=== PATIENT | female | born 1995 | race Two or more races ===

== ENCOUNTER 2021-10-03 21:45 | Emergency (ER) | payer OTHER ==
[2021-10-03 22:07] VITALS: BP 130/74; PULSE 73; TEMP 98.9; BMI 29.1
== END 2021-10-03 22:33 | disposition home or self-care (01) ==
LOC: FER 21:45
DX: M79.642 Pain in left hand (principal)
CPT/HCPCS: 73130-TC-LT-FY; 99283-25

== ENCOUNTER 2024-02-17 17:38 | Emergency (ER) | payer OTHER ==
[2024-02-17 17:53] VITALS: BP 127/81; PULSE 85; RESP 18; TEMP 98; BMI 39.1
== END 2024-02-17 19:20 | disposition home or self-care (01) ==
LOC: JERFT 17:38 → JER 17:38 → JERFT 19:20
DX: M25.571 Pain in right ankle and joints of right foot (principal); M79.642 Pain in left hand; S93.401A Sprain of unspecified ligament of right ankle, initial encounter; S60.222A Contusion of left hand, initial encounter; W18.39XA Other fall on same level, initial encounter; X50.1XXA Overexertion from prolonged static or awkward postures, initial encounter; Y99.0 Civilian activity done for income or pay
CPT/HCPCS: 73110-TC-LT-FY; 73130-TC-LT-FY; 73610-TC-RT-FY; 73630-TC-RT-FY; 99284-25

== ENCOUNTER 2024-11-08 06:32 | Inpatient (IN) | payer OTHER ==
[2024-11-08] MEDS ORDERED: ACETAMINOPHEN INJECTION 100 ML ONE (07:45)
[2024-11-08] MEDS ORDERED: ONDANSETRON 4 MG/2 ML VIAL ONE (07:47)
[2024-11-08] MEDS: ONDANSETRON 4 MG/2 ML VIAL IVPUSH ONE (07:52)
[2024-11-08] MEDS: ACETAMINOPHEN 1000 MG/100 ML BAG IVPB ONE (07:52)
[2024-11-08 08:08] LABS: BASO % 0.3 % (0-2.0); EOS % 0.3 % (0-4.5); HEMATOCRIT 35.6 % (32.4-45.2); HEMOGLOBIN 12.1 GM/dL (10.7-15.3); LYMPH % 7.9 % (8-40); MCHC 33.9 g/dl (32.0-36.0); MEAN CELL VOLUME 88.5 fl (80-96); MEAN PLT VOLUME 8.2 fl (7.5-11.1); MONO % 6.1 % (3.8-10.2); NEUT % 85.4 % (42.8-82.8); PLATELET COUNT 349 10^3/uL (134-434); RBC 4.02 M/mm3 (3.60-5.2); RDW 14.3 % (11.6-15.6); WHITE BLOOD COUNT 16.8 K/mm3 (4.0-10.0)
[2024-11-08 08:17] LABS: POTASSIUM 3.7 mmol/L (3.5-5.1)
[2024-11-08 08:19] LABS: ALBUMIN 3.7 g/dl (3.4-5.0); CALCIUM 9.2 mg/dL (8.5-10.1)
[2024-11-08 08:20] LABS: BLOOD UREA NITROGEN 11.8 mg/dL (7-18)
[2024-11-08 08:23] LABS: CREATININE 0.9 mg/dL (0.55-1.3)
[2024-11-08 08:24] LABS: BILIRUBIN,TOTAL 0.9 mg/dL (0.2-1); TOT PROT 7.2 g/dl (6.4-8.2)
[2024-11-08 08:53] LABS: EPI CELLS >36 /uL (0-25.1); HYALINE CASTS 3 /uL (0-3.1); URINE APPEARANCE CLOUDY; URINE BILIRUBIN 1+ (NEGATIVE); URINE COLOR DK YELLOW; URINE GLUCOSE (UA) NEGATIVE (NEGATIVE); URINE KETONE TRACE (NEGATIVE); URINE LEUK ESTERASE NEGATIVE (NEGATIVE); URINE NITRITE POSITIVE (NEGATIVE); URINE PROTEIN 1+ (NEGATIVE); URINE WBC 45 /uL (0-25.8)
[2024-11-08 09:03] LABS: URINE BACTERIA 474.3 /uL (0-1359); URINE RBC 46.5 /uL (0-23.9)
[2024-11-08 09:04] LABS: HCG,QUALITATIVE URINE Negative
[2024-11-08] MEDS ORDERED: CEFTRIAXONE 1 G/50 ML PREMIX 50 ML IVPB ONE (12:08)
[2024-11-08] MEDS: CEFTRIAXONE 1 GM in DEXTROSE 5%-WATER - 50 ML IVPB ONE (12:14)
[2024-11-08] MEDS: SODIUM CHLORIDE 1,000 ML IV ONE (12:28)
[2024-11-08] MEDS ORDERED: morphine SULFATE 4 MG/ML VIAL ONE ×2 (17:51→23:23)
[2024-11-08] MEDS: morphine CARPU-JECT 4 MG/1 ML DISP.SYRIN IVPUSH ONE (18:31)
[2024-11-08] MEDS ORDERED: PIPERACILLIN/TAZOB 4.5 GM 4.5 GM/100 ML BAG IVPB ONE (18:47)
[2024-11-08] MEDS: PIPERACILLIN/TAZOB 4.5 GM 4.5 GM in DEXTROSE 5%-WATER 100 ML IVPB ONE (18:50)
[2024-11-08] MEDS: morphine SULFATE 4 MG/ML VIAL IVPUSH ONE (23:35)
[2024-11-09 01:43] VITALS: BMI 24.0
[2024-11-09] MEDS: PIPERACILLIN/TAZOB 3.375 GM 50 ML IVPB SCH (03:50)
[2024-11-09] MEDS: LEVOTHYROXINE NA 50 MCG TABLET (FP) PO SCH (06:27)
[2024-11-09] MEDS: INSULIN ASPART SLIDING SCALE (NOVOLOG) 1 VIAL SQ SCH (06:27)
[2024-11-09 08:04] LABS: BASO % 0.2 % (0-2.0); EOS % 0.2 % (0-4.5); HEMATOCRIT 31.6 % (32.4-45.2); HEMOGLOBIN 10.7 GM/dL (10.7-15.3); LYMPH % 7.3 % (8-40); MCH 30.1 pg (25.7-33.7); MCHC 33.8 g/dl (32.0-36.0); MEAN PLT VOLUME 8.2 fl (7.5-11.1); MONO % 6.4 % (3.8-10.2); NEUT % 85.9 % (42.8-82.8); PLATELET COUNT 309 10^3/uL (134-434); RBC 3.55 M/mm3 (3.60-5.2); RDW 14.4 % (11.6-15.6); WHITE BLOOD COUNT 15.7 K/mm3 (4.0-10.0)
[2024-11-09 08:22] LABS: POTASSIUM 3.9 mmol/L (3.5-5.1)
[2024-11-09 08:25] LABS: CALCIUM 8.6 mg/dL (8.5-10.1)
[2024-11-09 08:26] LABS: BLOOD UREA NITROGEN 7.2 mg/dL (7-18); MAGNESIUM 1.9 mg/dL (1.8-2.4)
[2024-11-09 08:29] LABS: CREATININE 0.9 mg/dL (0.55-1.3); PHOSPHOROUS 3.1 mg/dL (2.5-4.9)
[2024-11-09 08:31] LABS: ALBUMIN 2.9 g/dl (3.4-5.0); TOT PROT 6.4 g/dl (6.4-8.2)
[2024-11-09] MEDS: ACETAMINOPHEN 1000 MG/100 ML BAG IVPB PRN (14:53)
[2024-11-09] MEDS: SODIUM CHLORIDE 1,000 ML IV SCH (18:00)
[2024-11-10] MEDS: DEXTROSE 5%-0.45% SALINE 1,000 ML IV SCH ×2 (08:55→16:58)
[2024-11-10 09:37] LABS: BASO % 0.3 % (0-2.0); EOS % 0.5 % (0-4.5); HEMATOCRIT 33.8 % (32.4-45.2); HEMOGLOBIN 10.9 GM/dL (10.7-15.3); LYMPH % 10.2 % (8-40); MCH 29.2 pg (25.7-33.7); MCHC 32.2 g/dl (32.0-36.0); MEAN CELL VOLUME 90.7 fl (80-96); MEAN PLT VOLUME 8.2 fl (7.5-11.1); MONO % 4.8 % (3.8-10.2); NEUT % 84.2 % (42.8-82.8); PLATELET COUNT 391 10^3/uL (134-434); RBC 3.73 M/mm3 (3.60-5.2); RDW 14.3 % (11.6-15.6); WHITE BLOOD COUNT 16.1 K/mm3 (4.0-10.0)
[2024-11-10 09:49] LABS: POTASSIUM 3.7 mmol/L (3.5-5.1)
[2024-11-10 09:59] LABS: BLOOD UREA NITROGEN 10.4 mg/dL (7-18); CALCIUM 9.3 mg/dL (8.5-10.1)
[2024-11-10 10:02] LABS: CREATININE 0.8 mg/dL (0.55-1.3)
[2024-11-10 10:03] LABS: BILIRUBIN,TOTAL 1.2 mg/dL (0.2-1)
[2024-11-11 07:03] VITALS: RESP 18
[2024-11-11 07:47] LABS: BASO % 0.3 % (0-2.0); EOS % 0.9 % (0-4.5); HEMATOCRIT 31.1 % (32.4-45.2); HEMOGLOBIN 10.4 GM/dL (10.7-15.3); LYMPH % 10.1 % (8-40); MCH 29.4 pg (25.7-33.7); MCHC 33.3 g/dl (32.0-36.0); MEAN CELL VOLUME 88.4 fl (80-96); MEAN PLT VOLUME 7.9 fl (7.5-11.1); MONO % 8.6 % (3.8-10.2); NEUT % 80.1 % (42.8-82.8); PLATELET COUNT 355 10^3/uL (134-434); RBC 3.52 M/mm3 (3.60-5.2); RDW 14.4 % (11.6-15.6); WHITE BLOOD COUNT 11.5 K/mm3 (4.0-10.0)
[2024-11-11 07:52] LABS: POTASSIUM 3.5 mmol/L (3.5-5.1)
[2024-11-11 08:02] LABS: CALCIUM 9.1 mg/dL (8.5-10.1)
[2024-11-11 08:03] LABS: ALBUMIN 2.6 g/dl (3.4-5.0); BLOOD UREA NITROGEN 5.8 mg/dL (7-18); MAGNESIUM 1.7 mg/dL (1.8-2.4)
[2024-11-11 08:06] LABS: BILIRUBIN,TOTAL 0.6 mg/dL (0.2-1); CREATININE 0.7 mg/dL (0.55-1.3); TOT PROT 6.3 g/dl (6.4-8.2)
[2024-11-11] MEDS: PIPERACILLIN/TAZOB 3.375 GM 3.375 GM in DEXTROSE 5%-WATER - 50 ML IVPB SCH ×2 (15:58→16:32)
[2024-11-11] MEDS: HEPARIN NA (PORCINE) 5,000 UNITS/ML 1ML VIAL SQ SCH (16:32)
[2024-11-11] MEDS: PIPERACILLIN/TAZOB 3.375 GM 50 ML IVPB SCH (17:47)
[2024-11-12] MEDS: ACETAMINOPHEN 1000 MG/100 ML BAG IVPB PRN (20:43)
[2024-11-13 07:09] VITALS: TEMP 98.2
[2024-11-13 10:16] VITALS: BP 114/76; PULSE 82
[2024-11-13 11:20] LABS: BASO % 0.6 % (0-2.0); EOS % 1.7 % (0-4.5); HEMATOCRIT 31.7 % (32.4-45.2); HEMOGLOBIN 10.5 GM/dL (10.7-15.3); LYMPH % 17.6 % (8-40); MCH 29.2 pg (25.7-33.7); MEAN CELL VOLUME 88.5 fl (80-96); MEAN PLT VOLUME 7.9 fl (7.5-11.1); MONO % 11.4 % (3.8-10.2); NEUT % 68.7 % (42.8-82.8); PLATELET COUNT 381 10^3/uL (134-434); RBC 3.58 M/mm3 (3.60-5.2); RDW 14.3 % (11.6-15.6); WHITE BLOOD COUNT 8.8 K/mm3 (4.0-10.0)
[2024-11-13 11:44] LABS: POTASSIUM 3.9 mmol/L (3.5-5.1)
[2024-11-13 11:47] LABS: BLOOD UREA NITROGEN 3.5 mg/dL (7-18); MAGNESIUM 1.9 mg/dL (1.8-2.4)
[2024-11-13 11:48] LABS: ALBUMIN 2.5 g/dl (3.4-5.0)
[2024-11-13 11:50] LABS: CREATININE 0.7 mg/dL (0.55-1.3)
[2024-11-13 11:52] LABS: BILIRUBIN,TOTAL 0.6 mg/dL (0.2-1); TOT PROT 6.6 g/dl (6.4-8.2)
== END 2024-11-13 18:02 | disposition home or self-care (01) | DRG 244 ==
LOC: JER 06:32 → JERBED 19:17 → J7W 11-09 01:30
PROVIDERS: ADMIT Internal Medicine; ATTEND Nurse Practitioner Family
DX: K57.20 Diverticulitis of large intestine with perforation and abscess without bleeding (principal); K65.1 Peritoneal abscess; E03.9 Hypothyroidism, unspecified; E16.2 Hypoglycemia, unspecified
CPT/HCPCS: 36415; 74176-TC; 76830-TC; 80053; 81003; 82962; 83036; 83690; 83735; 84100; 84703; 85025; 87040; 87491; 87591; 87661; 93005; 93010; 99285-25; J0131; J1644

== ENCOUNTER 2025-05-24 10:36 | Day surgery (SDC) | payer OTHER ==
[2025-05-20 13:09] VITALS: BMI 36.9
[2025-05-24] MEDS ORDERED: LIDOCAINE VISCOUS 2% ORAL/TOP 15 ML UNIT-DOSE CUP ONE (11:51)
[2025-05-24] MEDS ORDERED: LIDOCAINE HCL/PF 2% SDV 5ML VIAL ONE (11:51)
[2025-05-24 12:38] VITALS: TEMP 98
[2025-05-24 12:41] VITALS: BP 124/72; PULSE 78; RESP 19
== END 2025-05-24 12:30 | disposition home or self-care (01) ==
LOC: FASU-ENDO 10:36
PROVIDERS: ATTEND Internal Medicine Gastroenterology
PROC: 0DB78ZX Excision of Stomach, Pylorus, Via Natural or Artificial Opening Endoscopic, Diagnostic (ICD-10-PCS; 2025-05-24)
PROC: 0DB68ZX Excision of Stomach, Via Natural or Artificial Opening Endoscopic, Diagnostic (ICD-10-PCS; 2025-05-24)
PROC: 0DB98ZX Excision of Duodenum, Via Natural or Artificial Opening Endoscopic, Diagnostic (ICD-10-PCS; principal; 2025-05-24 11:45)
DX: K29.50 Unspecified chronic gastritis without bleeding (principal)
CPT/HCPCS: 81025; 88305-TC; 88342-TC